=== PATIENT | female | born 1980 | race Caucasian/White ===

== ENCOUNTER → 2018-07-24 | Outpatient (CLI) | payer BC | LOC: GMAL 12:30 | PROVIDERS: ATTEND Family Medicine | DX: D51.3 Other dietary vitamin B12 deficiency anemia (principal); E03.8 Other specified hypothyroidism; E55.9 Vitamin D deficiency, unspecified ==

== ENCOUNTER → 2018-08-13 | Outpatient (CLI) | payer BC | LOC: LAB.O 09:51 | PROVIDERS: ATTEND Family Medicine | DX: M25.50 Pain in unspecified joint (principal); L65.9 Nonscarring hair loss, unspecified; R63.5 Abnormal weight gain; R53.82 Chronic fatigue, unspecified; D50.8 Other iron deficiency anemias ==

== ENCOUNTER → 2018-10-27 | Outpatient (CLI) | payer BC | LOC: LAB.O 09:46 | PROVIDERS: ATTEND Internal Medicine | DX: E03.9 Hypothyroidism, unspecified (principal) ==

== ENCOUNTER → 2019-07-14 | Outpatient (CLI) | payer BC ==
[~2019-07-14] MED LIST: ALBUTEROL SULFATE 2.5 MG/3 ML VIAL NEB ONE
== END ==
LOC: RESP 10:02
PROVIDERS: ATTEND Nurse Practitioner Family
DX: J98.11 Atelectasis (principal)
CPT/HCPCS: 94060; J7611

== ENCOUNTER 2019-10-28 08:08 | Emergency (ER) | payer BC ==
--- NOTE | 2019-10-28 08:24 | ED.PDOC ---
History of Present Illness - General Chief Complaint: Abdominal Pain Stated Complaint: LLQ abdominal pain Time Seen by Provider: 10/28/19 08:13 Additional Information: Patient is a 39-year-old female who presents to the ED with chief complaint of left lower quadrant pain. Pain began last night before going to bed and has been constant. Patient describes the pain as sharp and rates it as 10 over 10 in intensity. Negative nausea, vomiting, diarrhea, fever, chills. Patient denies any previous history of similar symptoms. Patient is status post cholecystectomy and total hysterectomy. Patient's is otherwise a symptomatic. Review of Systems - Review of Systems Constitutional: Denies: chills, fever EENTM: States: no symptoms reported Respiratory: States: no symptoms reported. Denies: cough, short of breath Cardiology: States: no symptoms reported. Denies: chest pain, palpitations Gastrointestinal/Abdominal: States: see HPI. Denies: nausea, vomiting Genitourinary: States: no symptoms reported. Denies: dysuria Musculoskeletal: States: no symptoms reported. Denies: back pain Skin: States: no symptoms reported. Denies: rash Neurological: States: no symptoms reported Endocrine: States: no symptoms reported Hematologic/Lymphatic: States: no symptoms reported All other Systems: Reviewed and Negative Family Medical History - Family History Mother Hx Family Hypertension: Yes Physical Exam - Physical Exam General Appearance: Alert, No apparent distress, Well Developed, Well Nourished, Other - uncomfortable Eyes, Ears, Nose, Throat Exam: PERRL/EOMI, normal ENT inspection Neck: supple, normal inspection Respiratory: chest non-tender, lungs clear, normal breath sounds, no respiratory distress, no accessory muscle use Cardiovascular/Chest: normal peripheral pulses, regular rate, rhythm, no edema, no gallop, no JVD, no murmur Peripheral Pulses: No deficit Gastrointestinal/Abdominal: normal bowel sounds, soft, other - moderate left lower quadrant tenderness to palpation with guarding Back Exam: normal inspection, no CVA tenderness Extremity: normal range of motion, non-tender, normal inspection 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 Patient's labs are unremarkable and her CT is nonacute but does suggest a left ovarian cyst which would correlate with patient's symptoms. Patient is still complaining of moderate left lower quadrant pain and I have discussed with her that I will ultrasound her pelvis to evaluate for ovarian torsion. 10/28/19 11:52 Patient feeling much better at this time, her pain is well controlled. Patient's pelvic sono has resulted and shows a 4.5 cm septated cyst associated with the left ovary for which malignancy cannot be excluded. I have specifically discussed this finding with the patient along with need for close gynecologic follow-up to exclude cancer. Pt indicates that she has a fabrication specialist in [place], she cannot remember his name at the moment, and she will call him and make an appointment for early next week. Patient has been given a copy of all of her image findings along with a CD with her images on them.Vital signs stable, patient NAD and appears clinically well, believe patient is safe for discharge with outpatient follow-up. Follow-up instructions, discharge instructions, return to ED warnings given. Patient voices understanding and willingness to comply with instructions as discussed. Patient will return to the ED with new or worsening symptoms. All questions answered. Patient is happy with plan. 10/28/19 12:00 - Results/Orders Results/Orders: 10/28/19 08:21 Hold Metformin x 48Hrs [id number] 10/28/19 10:05 Pelvic,Non-OB [US] Stat Laboratory Results - last 24 hr 10/28/19 10/28/19 10/28/19 08:30 08:30 08:30 WBC 6.6 RBC 4.79 Hgb 13.6 Hct 40.6 MCV 84.8 MCH 28.4 MCHC 33.5 RDW 13.7 Plt Count 246 MPV 9.9 Absolute Neuts (auto) 4.90 Absolute Lymphs (auto) 1.20 Absolute Monos (auto) 0.40 Absolute Eos (auto) 0.10 Absolute Basos (auto) 0.10 Neutrophils % 73.8 Lymphocytes % 17.6 L Monocytes % 6.0 Eosinophils % 1.4 Basophils % 1.2 Sodium 137 Potassium 3.7 Chloride 107 Carbon Dioxide 19 L Anion Gap 14.7 BUN 11 Creatinine 0.78 BUN/Creatinine Ratio 14.1 Random Glucose 89 Serum Osmolality 272.7 L Lactic Acid 1.3 Calcium 9.4 Total Bilirubin 0.6 AST 20 ALT 15 Alkaline Phosphatase 65 Serum Total Protein 7.6 Albumin 3.8 Globulin 3.8 H Albumin/Globulin Ratio 1.0 L Urine Color Urine Appearance Urine pH Ur Specific [place] Urine Protein Urine Glucose (UA) Urine Ketones Urine Blood Urine Nitrite Urine Bilirubin Urine Urobilinogen Ur Leukocyte Esterase Urine RBC Urine WBC Ur Epithelial Cells Urine Bacteria 10/28/19 09:12 WBC RBC Hgb Hct MCV MCH MCHC RDW Plt Count MPV Absolute Neuts (auto) Absolute Lymphs (auto) Absolute Monos (auto) Absolute Eos (auto) Absolute Basos (auto) Neutrophils % Lymphocytes % Monocytes % Eosinophils % Basophils % Sodium Potassium Chloride Carbon Dioxide Anion Gap BUN Creatinine BUN/Creatinine Ratio Random Glucose Serum Osmolality Lactic Acid Calcium Total Bilirubin AST ALT Alkaline Phosphatase Serum Total Protein Albumin Globulin Albumin/Globulin Ratio Urine Color Yellow Urine Appearance Clear Urine pH 8.0 H Ur Specific [place] 1.015 Urine Protein Negative Urine Glucose (UA) Negative Urine Ketones Negative Urine Blood Negative Urine Nitrite Negative Urine Bilirubin Negative Urine Urobilinogen 0.2 Ur Leukocyte Esterase Negative Urine RBC 0 Urine WBC 0 Ur Epithelial Cells 5-10 Urine Bacteria 0 Departure - Departure Clinical Impression: Ovarian mass, left Ovarian cyst Qualifiers: Laterality: left Qualified Code(s): N83.202 - Unspecified ovarian cyst, left side Time of Disposition: 11:55 Disposition: Discharge to Home or Self Care Condition: Good Departure Forms: ED Discharge - Pt. Copy, Patient Portal Self Enrollment Instructions: DI for Abdominal Pain-Adult, Ovarian Cysts, Ovarian Cyst (DC) Referrals: Jacques Hadley MD [Active Staff] - 1-5 Days Prescriptions: Acetaminophen W/ Codeine [Tylenol W/ CODEINE #3] 1 ea PO Q6H PRN #20 PRN Reason: Pain Home Medications: Ambulatory Orders Acetaminophen W/ Codeine [Tylenol W/ CODEINE #3] 1 ea PO Q6H PRN #20 10/28/19 Levothyroxine Sodium [Unithroid] 125 mcg PO DAILY 10/28/19 Phentermine HCl 37.5 mg PO DAILY 10/28/19 Additional Instructions: Please call your fabrication specialist this week to make an appointment for reevaluation early next week of the irregularity noted to year left ovary. We have also given you a referral to Dr. Hadley, local fabrication specialist, if you are unable to follow up with your fabrication specialist in [place].
[2019-10-28] MEDS: SODIUM CHLORIDE 0.9% 1000ML 1,000 ML IVS ONE (08:32)
[2019-10-28] MEDS: ONDANSETRON INJ 4 MG/2 ML VIAL IV ONE ×2 (08:39→10:37)
[2019-10-28] MEDS: MORPHINE SULFATE INJ 10 MG/ML VIAL IV ONE (08:40)
--- NOTE | 2019-10-28 09:51 | CT ---
EXAM DESCRIPTION: CT abdomen and pelvis with contrast CLINICAL HISTORY: Ulcerative colitis. Abdomen pain COMPARISON: None Available. TECHNIQUE: Spiral CT with multiplanar reformatted images. Intravenous iodinated nonionic contrast This exam was performed according to our departmental dose-optimization program, which includes automated exposure control, adjustment of the mA and/or kV according to patient size and/or use of iterative reconstruction technique. FINDINGS: No diagnostic active inflammation of the large intestine. No mass lesion, wall thickening or surrounding edema. Normal appearance of the stomach and small intestine. Normal terminal ileum Previous hysterectomy. Unilocular simple ovoid cyst 2.7 cm in the right adnexa. Septated left adnexal/ovarian cyst 4.5 cm in greatest dimension. Thin septations. Solid component along the superior margin likely normal ovarian tissue No mass lesion or inflammatory process seen in the omentum, mesentery or retroperitoneum Visualized lung bases are clear. Heart size is normal Normal appearance of the spleen, pancreas, adrenal glands and kidneys Previous cholecystectomy. Normal extrahepatic common bile duct. Minimally prominent central intrahepatic bile ducts likely postcholecystectomy related. No hepatic mass lesion. Normal parenchymal enhancement No lytic or blastic bony lesion or other acute bony abnormality IMPRESSION: No diagnostic evidence of acute inflammation/ulcerative colitis 4.5 cm left adnexal/ovarian septated probably benign cystic mass lesion. Recommend ultrasound follow-up in 6-12 weeks in this premenopausal patient Electronically signed by: Bradley Cee MD 10/28/2019 9:50 AM [employer]
--- NOTE | 2019-10-28 11:34 | US ---
EXAM DESCRIPTION: Pelvic,Non-OB CLINICAL HISTORY: Left adnexal pain w abnormal CT COMPARISON: October 28, 2019 TECHNIQUE: Real-time sonographic images of the pelvis are obtained transabdominally. FINDINGS: The uterus is surgically absent. The right ovary measures 1.9 x 2.9 x 2.3cm. Volume 6 cc. The left ovary measures 3.8 x 4.5 x 4.7cm. Volume is 43 cc. Anechoic 4.7 cm cyst with thickened internal septations occupies most of the left ovary. Vascular flow is seen in the thin ovarian tissue around the ovarian cysts.. No abnormal adnexal mass or fluid collection is seen. IMPRESSION: Complex thick-walled left ovarian cyst measures 4.7 cm. 4.7 cm worrisome for malignancy ovarian cyst. Recommend surgical evaluation. Reference: Radiology 2010 Sep;256(3):943-54 Simple cyst of the right ovary. No follow-up of this cyst is recommended. The uterus is not visualized and presumed surgically absent. Electronically signed by: Grant Mcqueen MD 10/28/2019 11:32 AM [facility]
[2019-10-28 11:43] VITALS: O2SAT 99
[2019-10-28 12:20] VITALS: BP 146/76; TEMP 97.6
== END 2019-10-28 12:21 | disposition home or self-care (01) ==
LOC: ER 08:08
DX: N83.202 Unspecified ovarian cyst, left side (principal)
CPT/HCPCS: 74177; 76856; 80053; 81001; 83605; 85025; J2270; J2405; J7030

== ENCOUNTER → 2019-11-24 | Outpatient (CLI) | payer BC | LOC: LAB.O 16:07 | PROVIDERS: ATTEND Obstetrics & Gynecology | DX: N30.00 Acute cystitis without hematuria (principal) ==